=== PATIENT | female | born 1950 | race Native Hawaiian/Other Pacific Islander ===

== ENCOUNTER 2020-08-18 15:27 | Outpatient (CLI) | payer OTHER | END 2020-08-18 23:58 | disposition home or self-care (01) | LOC: INF 15:27 | PROVIDERS: ATTEND Internal Medicine | DX: Z23 Encounter for immunization (principal) | CPT/HCPCS: 96372 ==

== ENCOUNTER 2020-09-15 14:15 | Outpatient (CLI) | payer OTHER | END 2020-09-15 22:02 | disposition home or self-care (01) | LOC: INF 14:15 | PROVIDERS: ATTEND Internal Medicine | DX: Z23 Encounter for immunization (principal) | CPT/HCPCS: 96372 ==

== ENCOUNTER 2021-12-27 09:08 | Outpatient (CLI) | payer OTHER | END 2021-12-27 19:28 | disposition home or self-care (01) | LOC: MAMMO 09:08 | PROVIDERS: ATTEND Internal Medicine | DX: Z12.31 Encounter for screening mammogram for malignant neoplasm of breast (principal); Z13.820 Encounter for screening for osteoporosis; N95.8 Other specified menopausal and perimenopausal disorders ==